=== PATIENT | female | born 1955 | race Caucasian/White ===

== ENCOUNTER 2020-07-03 16:14 | Emergency (ER) | payer SELFPAY ==
--- NOTE | 2020-07-03 18:07 | RAD ---
Exam: 2 views thoracic spine HISTORY: Pain. FINDINGS: 12 thoracic type vertebra. Thoracic spine vertebral body heights appear to be maintained. T here is no fracture. Disc space heights are preserved. Minimal osteophyte formation at the L1-L2 level. On the AP projection, there is mild leftward curvature of the mid to distal thoracic spine. IMPRESSION: No radiographic evidence of an acute thoracic spine abnormality.
--- NOTE | 2020-07-03 19:03 | CT ---
NONCONTRAST CT HEAD: 07/03/20 HISTORY: Headache. A cabinet fell on patient's head. COMPARISON: None. FINDINGS: There is no evidence of a hemorrhage, acute infarction, mass effect, or midline shift. The ventricula r system is normal in size, shape and position. The visualized paranasal sinuses are clear. No depres sed calvarial fracture is seen. IMPRESSION: No acute intracranial abnormality is demonstrated. POS: RAINER
--- NOTE | 2020-07-03 19:07 | CT ---
NONCONTRAST CT CERVICAL SPINE: 07/03/20 HISTORY: Head and neck pain after a cabinet fell on patient's head. TECHNIQUE: Contiguous axial CT images are obtained through the cervical spine from the skull base to the T1-2 le daniel. Sagittal and coronal reformat images are provided. FINDINGS: There is slight anterolisthesis ofC4 on C5 and C5 on C6 as well as C7 on T1. There are mild facet deg enerative changes at these levels which likely account for the subluxation at these levels. The vertebral body heights are within normal limits. Interspinous distances are within normal limits. No fracture is seen. No prevertebral soft tissue swelling is identified. Vascular calcifications are seen in the carotid a rteries. The visualized lung apices are clear. IMPRESSION: 1. No fracture or traumatic subluxation is seen involving the cervical spine. 2. Subluxation at the C4-5, C5-6, C7-T1 levels felt to most likely be attributable to the facet degenerative changes at these levels. POS: RAINER
== END 2020-07-03 18:20 | disposition home or self-care (01) ==
LOC: BURERS 16:14
DX: S10.93XA Contusion of unspecified part of neck, initial encounter (principal); S20.229A Contusion of unspecified back wall of thorax, initial encounter; S00.01XA Abrasion of scalp, initial encounter; I10 Essential (primary) hypertension; M19.90 Unspecified osteoarthritis, unspecified site; M79.7 Fibromyalgia; G47.00 Insomnia, unspecified; W20.8XXA Other cause of strike by thrown, projected or falling object, initial encounter
CPT/HCPCS: 70450; 72070; 72125